=== PATIENT | female | born 1980 | race Caucasian/White ===

== ENCOUNTER 2017-10-12 12:51 | Emergency (ER) | payer OTHER ==
[2017-10-12 13:09] VITALS: BP 147/88; PULSE 70; TEMP 97; BMI 27.3
--- NOTE | 2017-10-12 14:37 | PDOC ---
History of Present Illness - General Chief Complaint: Injury Stated Complaint: FALL/ BACK PAIN Time Seen by Provider: 10/12/17 14:13 History Source: Patient Exam Limitations: No Limitations - History of Present Illness Initial Comments: 10/12/17 14:42 Patient is a 37-year-old female with no past medical history who presents emergency department today complaining of low back pain. Patient states she was knocked over by the family dog and landed flat on her back. States that she hit her head, however no LOC, dizziness or lightheadedness. She is taking Motrin for the pain with little relief. Denies fevers, chills, nausea, vomiting, diarrhea, constipation, weakness, numbness and tingling, urinary or bowel incontinence, saddle anesthesia. Past History - Travel Traveled outside of the country in the last 30 days: No Close contact w/someone who was outside of country & ill: No - Past Medical History Allergies/Adverse Reactions: Allergies Allergy/AdvReac Type Severity Reaction Status Date / Time No Known Allergies Allergy Verified 10/12/17 13:09 Home Medications: Ambulatory Orders Docusate Sodium [Colace -] 100 mg PO BID #14 capsule 10/12/17 Ibuprofen 800 mg PO TID #30 tablet 10/12/17 COPD: No - Suicide/Smoking/Psychosocial Hx Smoking History: Never smoked Review of Systems - Review of Systems Able to Perform ROS?: Yes Comments:: 10/12/17 14:44 CONSTITUTIONAL: Absent: fever, chills, diaphoresis, generalized weakness, malaise, loss of appetite GASTROINTESTINAL: Absent: abdominal pain, abdominal distension, nausea, vomiting, diarrhea, constipation, melena, hematochezia GENITOURINARY: Absent: dysuria, frequency, urgency, hesitancy, hematuria, flank pain, genital pain MUSCULOSKELETAL: Present: low back pain Absent: arthralgia, joint swelling SKIN: Absent: rash, itching, pallor NEUROLOGIC: Absent: headache, focal weakness or paresthesias, dizziness, unsteady gait, seizure, mental status changes, bladder or bowel incontinence Is the patient limited Romanian proficient: No *Physical Exam - Vital Signs Last Vital Signs Temp Pulse Resp BP Pulse Ox 97 F L 70 18 147/88 99 10/12/17 13:08 10/12/17 13:08 10/12/17 13:08 10/12/17 13:08 10/12/17 13:08 - Physical Exam Comments: 10/12/17 14:47 GENERAL: Well developed, well nourished. Awake and alert. No acute distress. NECK: Supple. Full ROM. No JVD. Carotid pulses 2+ and symmetric, without bruits. No thyromegaly. No lymphadenopathy. MUSCULOSKELETAL Point midline tenderness to the level of the coccyx. Normal range of motion at all joints. No bony deformities or tenderness. No CVA tenderness. EXTREMITIES: No cyanosis. No clubbing. No edema. No calf tenderness. SKIN: Warm and dry. Normal capillary refill. No rashes. No jaundice. NEUROLOGICAL: Alert, awake, appropriate. Cranial nerves 2-12 intact. No deficits to light touch and temperature in face, upper extremities and lower extremities. No motor deficits in the in face, upper extremities and lower extremities. Normoreflexic in the upper and lower extremities. Normal speech. Toes are down- going bilaterally. Gait is normal without ataxia. Good rectal tone. Medical Decision Making - Medical Decision Making 10/12/17 14:49 Patient is a 37-year-old female who presents emergency Department with coccyx pain after trip and fall 2 days ago. I suspect a bruised coccyx at this time however will obtain x-ray to rule out fracture. 800 Motrin given. 10/12/17 15:42 X-ray read by radiology shows possible coccyx fracture. Given symptoms and tenderness to palpation at that area, I suspect she does have a fracture. Will dc home with stool softeners and instructions for a donut seat. Results discussed with patient. Pt. understands all d/c instructions and all questions were answered at this time. *DC/Admit/Observation/Transfer Diagnosis at time of Disposition: Fractured coccyx Qualifiers: Encounter type: initial encounter Fracture type: closed Qualified Code(s): S32.2XXA - Fracture of coccyx, initial encounter for closed fracture - Discharge Dispostion Disposition: HOME Condition at time of disposition: Stable Admit: No - Referrals Referrals: Alfonzo Lawrence MD [Primary Care Provider] - Hussain Victoria MD [Staff Physician] - - Patient Instructions Printed Discharge Instructions: DI for Coccyx Fracture Additional Instructions: You have a fracture of your coccyx. Please take 800 mg of Motrin 3 times a day with help with her pain. You may have pain for the next 4-8 weeks. Please by a doughnut air cushion to sit on to relieve stress on the coccyx. Please follow- up with her primary care doctor this week. Return to the emergency department if you have worsening pain, numbness or tingling to the genital area, weakness, or any changes in your symptoms. - Post Discharge Activity
[2017-10-12] MEDS ORDERED: IBUPROFEN 400 MG TABLET (FP) PO ONE ×2 (14:38→14:45)
== END 2017-10-12 15:57 | disposition home or self-care (01) ==
LOC: JERFT 12:51
DX: S32.2XXA Fracture of coccyx, initial encounter for closed fracture (principal); W18.39XA Other fall on same level, initial encounter; Y93.89 Activity, other specified; Y92.018 Other place in single-family (private) house as the place of occurrence of the external cause
CPT/HCPCS: 72100-TC-FY; 72220-TC-FY; 99281-25

== ENCOUNTER 2018-07-19 21:18 | Inpatient (IN) | payer OTHER ==
--- NOTE | 2018-07-19 21:26 | PDOC ---
History of Present Illness - General Stated Complaint: DEHYDRATION Time Seen by Provider: 07/19/18 21:24 History Source: Patient, Spouse ( present for interview.) Exam Limitations: No Limitations - History of Present Illness Initial Comments: 38 y/o female presenting to [facility] ER via BLS ambulance complaining of nausea, vomiting, lightheadedness, and generalized malaise. Symptoms started spontaneously approx. 3 hours ago while she was playing with her children. She suddenly felt extremely nauseous, and vomited a lot in the bathroom. Believes she may have lost consciousness while on the toilet. Denies tongue biting or bowel/bladder incontinence. Temporarily felt relief, then symptoms returned. She called 911 after continued to feel extremely nauseous and lightheaded. EMT reported the pt was pale and diaphoretic on their arrival. PCP: Howard Aranda Hx: - EtOH: Denies - Tobacco: Denies - Street Drugs: Denies Medical Hx: - Depression, managed with citalopram nightly. - Iron deficiency Surgical Hx: - Pt denies. Past History - Past Medical History Allergies/Adverse Reactions: Allergies Allergy/AdvReac Type Severity Reaction Status Date / Time No Known Allergies Allergy Verified 10/12/17 13:09 Home Medications: Ambulatory Orders Docusate Sodium [Colace -] 100 mg PO BID #14 capsule 10/12/17 Ibuprofen 800 mg PO TID #30 tablet 10/12/17 COPD: No - Suicide/Smoking/Psychosocial Hx Smoking History: Never smoked Review of Systems - Review of Systems Able to Perform ROS?: Yes Comments:: In addition to that documented in the HPI above, the additional ROS was obtained : Constitutional: Endorses subjective fevers and chills Eyes: Denies vision changes ENMT: Denies sore throat CV: Denies chest pain Resp: Denies SOB GI: Endorses vomiting. Denies diarrhea : Denies painful urination MSK: Denies recent trauma Skin: Denies new rashes Neuro: Denies new numbness or tingling or weakness Endocrine: Denies polyuria Heme: Denies bleeding disorders *Physical Exam - Physical Exam Comments: Constitutional: Female in no acute distress but obvious discomfort. Found semi- fowlers in hospital bed. Alert and oriented x4. Answered all questions appropriately and completely. Speech was non-labored, non-pressured. Head: Normocephalic. No obvious external signs of trauma. No periorbital ecchymosis or Battles sign. Eyes: PERRL. EOMI. Sclerae white. Conjunctiva moist and not injected. Ears: External auditory canals and tympanic membranes clear. Hearing grossly intact. No hemotympanum. Nose: No nasal discharge. Throat: Oral cavity and pharynx normal. No inflammation, swelling, exudate, or lesions. Teeth and gingiva in good general condition. Neck: Supple, trachea is midline. Pt able to laterally rotate neck to left and right >45 degrees. No subjective C-spine tenderness or bony deformities. No step off. Cardiovascular: Regular rate and regular rhythm. No murmur, rubs, clicks, or gallops. Peripheral pulses: Radial pulses full. Respiratory: Breathing unlabored. Equal chest rise and fall. Clear to auscultation bilaterally. No stridor, no wheezing, no rhonchi. Gastrointestinal: abdomen is subjectively tender in LUQ without rebound or guarding. Globally, abdomen is soft and non-distended. No pulsatile masses. No overlying skin lesions or obvious signs of trauma. Neuro: Alert and oriented. Moving all four extremities spontaneously. No focal deficits, Cranial nerves intact, intact sensation to all four extremities. Upper and lower extremities: proximal and distal strength 5/5, ferryboat ticket taker strength 5/ 5 - equal and symmetric. Plantar flexion and dorsiflexion 5/5. Skin: Pale and diaphoretic. No bruising, rashes, or other lesions. Psych: Affect: appropriate. Mood: normal. ED Treatment Course - LABORATORY CBC & Chemistry Diagram: 07/19/18 22:10 07/19/18 22:10 - RADIOLOGY Radiograph Interpretation: Head CT without IV Contrast: Carlos Alberto Foley MD wrote on Jul 19, 2018 at 11:31 PM: Referring Physician: BISHOP ANDERSON Patient Name: VERONICA LI THIS IS A PRELIMINARY REPORT FROM [facility] DATE OF SERVICE: 2018-07-19 23:13:01 IMAGES: 139 Exam: CT head without IV contrast. Clinical indication:Syncope. Comparison:None available. Technique: Axial unenhanced CT images from the skull base through the brain were obtained followed by coronal and sagital reformats. Findings: The visualized bony structures are unremarkable. The visualized paranasal sinuses and mastoid air cells are clear. There is no evidence of intra-or extra-axial hemorrhage. The ventricles and basilar cisterns are unremarkable. There is no evidence of intracranial mass, acute infarct, or midline shift. Impression: Negative unenhanced CT of the brain. One or more of the following dose reduction techniques were used: automated exposure control, adjustment of the mA and/or kV according to patient size, use of iterative reconstructive technique. THIS DOCUMENT HAS BEEN ELECTRONICALLY SIGNED Carlos Alberto Foley MD 07/19/2018 22:30 EST Medical Decision Making - Medical Decision Making *Reviewed vital signs, nursing notes, and prior visit documentation (if available). 38 y/o female complaining of nausea/vomiting and generalized weakness after possible syncopal episode. No history of similar. Afebrile. Vitals unremarkable for hypotension or tachycardia on arrival. Unrevealing physical exam. Will obtain head CT for syncope. Ordered CBC, CMP, Troponin, EKG, UA, Urine Culture, and serum . Zofran and IVFB. CBC revealed leukocytosis and anemia. Suspect reactionary leukocytosis given short duration of symptoms. Anemia is likely iron deficiency given history. No previous lab results for comparison. CMP revealed hypokalemia and hypocalcemia. Ordered PO and IV replacement as pt is likely symptomatic. Mild hypocalcemia. Corrected to 7.4. Will order PO calcium. Troponin mildly elevated. Suspect demand ischemia given normal EKG and no chest pain. Will repeat with cardiac profile. Serum negative. UA unremarkable for pyuria, nitrites, or leukocyte esterase. Low suspicion for UTI/ urosepsis. 23:57 Microblog sent to [facility] for admission for hypokalemia. 07/20/18 00:[address] Dumont. Agrees to admit pt to tele obs. *DC/Admit/Observation/Transfer Diagnosis at time of Disposition: Hypokalemia Nausea & vomiting Qualifiers: Vomiting type: unspecified Vomiting Intractability: non-intractable Qualified Code(s): R11.2 - Nausea with vomiting, unspecified - Discharge Dispostion Condition at time of disposition: Stable Decision to Admit order: Yes - Referrals Referrals: Alfonzo Lawrence MD [Primary Care Provider] - - Patient Instructions - Post Discharge Activity
[2018-07-19 21:39] VITALS: BMI 25.7
[2018-07-19] MEDS ORDERED: ONDANSETRON 4 MG/2 ML VIAL IVPUSH ONE (21:52)
[2018-07-19] MEDS ORDERED: SODIUM CHLORIDE 0.9% 500 ML INFUS.BAG IV ONE (21:52)
[2018-07-19] MEDS ORDERED: ONDANSETRON 4 MG/2 ML VIAL ONE (22:19)
[2018-07-19 22:25] LABS: URINE APPEARANCE CLOUDY; URINE BILIRUBIN NEGATIVE (<2.0 mg/dL); URINE COLOR LTYELLOW; URINE GLUCOSE (UA) NEGATIVE (NEGATIVE); URINE KETONE NEGATIVE (NEGATIVE); URINE LEUK ESTERASE NEGATIVE (NEGATIVE); URINE NITRITE NEGATIVE (NEGATIVE); URINE PROTEIN NEGATIVE (NEGATIVE); URINE UROBILINOGEN NEGATIVE mg/dL (0.2-1.0)
[2018-07-19 22:39] LABS: BASO % 0.2 % (0-2.0); EOS % 0.3 % (0-4.5); HEMATOCRIT 27.2 % (32.4-45.2); HEMOGLOBIN 8.9 GM/dL (10.7-15.3); LYMPH % 9.4 % (8-40); MCH 29.5 pg (25.7-33.7); MCHC 32.9 g/dl (32.0-36.0); MEAN CELL VOLUME 89.6 fl (80-96); MEAN PLT VOLUME 8.8 fl (7.5-11.1); MONO % 4.8 % (3.8-10.2); NEUT % 85.3 % (42.8-82.8); PLATELET COUNT 243 K/MM3 (134-434); RBC 3.03 M/mm3 (3.60-5.2); WHITE BLOOD COUNT 14.1 K/mm3 (4.0-10.0)
[2018-07-19 22:55] LABS: ALBUMIN 2.6 g/dl (3.4-5.0); ALK PHOS 36 U/L (45-117); ANION GAP 9 MMOL/L (8-16); BILIRUBIN,TOTAL 0.2 mg/dL (0.2-1); BLOOD UREA NITROGEN 24 mg/dL (7-18); CHLORIDE 118 mmol/L (98-107); CO2 18 mmol/L (21-32); CREATININE 0.3 mg/dL (0.55-1.3); GLUCOSE,RANDOM 102 mg/dL (74-106); SGOT/AST 13 U/L (15-37); SGPT/ALT 13 U/L (13-61); SODIUM 146 mmol/L (136-145); TOT PROT 4.7 g/dl (6.4-8.2)
[2018-07-19 22:56] LABS: CALCIUM 6.3 mg/dL (8.5-10.1); POTASSIUM 2.7 mmol/L (3.5-5.1)
[2018-07-19] MEDS ORDERED: POTASSIUM CHLORIDE TABS 20 MEQ TABLET.ER (FP) PO ONE ×2 (23:06→23:10)
[2018-07-19] MEDS ORDERED: MAGNESIUM SULF 50% (8.12 MEQ/2 ML-1 GM VIAL) IVPB ONE (23:06)
--- NOTE | 2018-07-19 23:06 | PDOC ---
Attending Attestation - HPI HPI: 07/19/18 23:17 The patient is a 38-year-old female with no significant past medical history presents to the emergency department via ambulance with nausea and vomiting. The patient presents with 3 hours of nausea and with an episode of NBNB vomiting. The patient reports she went to the bathroom to vomit when she became lightheaded, and the patient states she is unsure if she lost consciousness or not. Denies fever, chills chest pain, dysuria, hematuria, frequency or urgency to urinate. Allergies: NKA PCP: Alfonzo Fagan MD <Patricia Salas - Last Filed: 07/19/18 23:17> - Resident Resident Name: Tim Lamas - ED Attending Attestation I have performed the following: I have examined & evaluated the patient, The case was reviewed & discussed with the resident, I agree w/resident's findings & plan - HPI HPI: 07/20/18 06:51 Pt tells us that her stools are dark, but that they always are due to iron supplements. She states that her vomitus yesterday was dark, but that she was eating oreos. Then she admits that she only ate one cookie. - Physicial Exam PE: 07/20/18 01:01 Agree with resident exam 07/20/18 07:00 Pt is pale. - Medical Decision Making 07/20/18 01:46 Patient Name: VERONICA LI THIS IS A PRELIMINARY REPORT FROM [facility] DATE OF SERVICE: 2018-07-19 23:13:01 IMAGES: 139 Exam: CT head without IV contrast. Clinical indication:Syncope. Comparison:None available. Technique: Axial unenhanced CT images from the skull base through the brain were obtained followed by coronal and sagital reformats. Findings: The visualized bony structures are unremarkable. The visualized paranasal sinuses and mastoid air cells are clear. There is no evidence of intra-or extra-axial hemorrhage. The ventricles and basilar cisterns are unremarkable. There is no evidence of intracranial mass, acute infarct, or midline shift. Impression: Negative unenhanced CT of the brain. THIS DOCUMENT HAS BEEN ELECTRONICALLY SIGNED 07/20/18 01:48 US normal. Pt was given K+ and Mg+ and she is pending repeat chem 07/20/18 05:03 Repeat chem is vastly improved. 07/20/18 06:44 Repeat CBC shows drop of 2.5 points of Hb. Pt received only 1L NSS. Pt reiterates that she wasvomiting black due to the Oreo that she ate. She also mentions that her stool is black due 07/20/18 06:47 Dr. Don and Hospitalist are both aware. Pt will get her unit of blood PRBC. Heading to the tele unit. 07/20/18 07:00 1U of blood hanging. I signed consent with the patient for the transfusion. <Erica Qiu - Last Filed: 07/20/18 07:02>
[2018-07-19] MEDS ORDERED: MAGNESIUM 1GM/D5W - 2 GM/200 ML IVPB IVPB ONE (23:11)
[2018-07-19] MEDS ORDERED: MAGNESIUM SULF 50% (8.12 MEQ/2 ML-1 GM VIAL) ONE (23:13)
[2018-07-19] MEDS ORDERED: KCL 10 MEQ IVPB 10 MEQ/100 ML INFUS.BAG IVPB ONE (23:56)
[2018-07-20] MEDS: KCL 10 MEQ IVPB 10 MEQ/100 ML INFUS.BAG IVPB SCH ×2 (00:07→01:44)
--- NOTE | 2018-07-20 00:35 | HP ---
CHIEF COMPLAINT: nausea, vomiting PCP: Howard HISTORY OF PRESENT ILLNESS: 38 y/o female presenting complaining of nausea, vomiting, lightheadedness, and generalized malaise. Symptoms started 6pm on 07/19/18. Patient reported eating spaghetti shortly before her symptoms started. She also had LOC when she was in bathroom and attempted to stand up from toilet. Denied CP or SOB. ER course was notable for: (1) head ct (2)iv fluids (3) potassium Recent Travel: none PAST MEDICAL HISTORY: depression, suni PAST SURGICAL HISTORY: c section x2 Social History: Smoking: no Alcohol: no Drugs: no Family History: none Allergies No Known Allergies Allergy (Verified 10/12/17 13:09) HOME MEDICATIONS: Home Medications Medication Instructions Recorded Docusate Sodium [Colace -] 100 mg PO BID #14 capsule 10/12/17 Ibuprofen 800 mg PO TID #30 tablet 10/12/17 REVIEW OF SYSTEMS CONSTITUTIONAL: Absent: fever, chills, diaphoresis, loss of appetite, weight change Present: generalized weakness, malaise HEENT: Absent: rhinorrhea, nasal congestion, throat pain, throat swelling, difficulty swallowing, mouth swelling, ear pain, eye pain, visual changes CARDIOVASCULAR: Absent: chest pain, syncope, palpitations, irregular heart rate, lightheadedness , peripheral edema RESPIRATORY: Absent: cough, shortness of breath, dyspnea with exertion, orthopnea, wheezing, stridor, hemoptysis GASTROINTESTINAL: Absent: abdominal pain, abdominal distension, diarrhea, constipation, melena, hematochezia Present: nausea, vomiting, GENITOURINARY: Absent: dysuria, frequency, urgency, hesitancy, hematuria, flank pain, genital pain MUSCULOSKELETAL: Absent: myalgia, arthralgia, joint swelling, back pain, neck pain SKIN: Absent: rash, itching, pallor HEMATOLOGIC/IMMUNOLOGIC: Absent: easy bleeding, easy bruising, lymphadenopathy, frequent infections ENDOCRINE: Absent: unexplained weight gain, unexplained weight loss, heat intolerance, cold intolerance NEUROLOGIC: Absent: headache, focal weakness or paresthesias, dizziness, unsteady gait, seizure, mental status changes, bladder or bowel incontinence PSYCHIATRIC: Absent: anxiety, depression, suicidal or homicidal ideation, hallucinations. PHYSICAL EXAMINATION Vital Signs - 24 hr 07/19/18 21:36 Temperature 97.8 F Pulse Rate 86 Respiratory 20 Rate Blood Pressure 130/80 O2 Sat by Pulse 100 Oximetry (%) GENERAL: Awake, alert, and fully oriented, in no acute distress. HEAD: Normal with no signs of trauma. EYES: Pupils equal, round and reactive to light, extraocular movements intact, sclera anicteric, conjunctiva clear. No lid lag. EARS, NOSE, THROAT: Ears normal, nares patent, oropharynx clear without exudates. Moist mucous membranes. NECK: Normal range of motion, supple without lymphadenopathy, JVD, or masses. LUNGS: Breath sounds equal, clear to auscultation bilaterally. No wheezes, and no crackles. No accessory muscle use. HEART: Regular rate and rhythm, normal S1 and S2 without murmur, rub or gallop. ABDOMEN: Soft, nontender, not distended, normoactive bowel sounds, no guarding, no rebound, no masses. No hepatomegaly or splenomegaly. MUSCULOSKELETAL: Normal range of motion at all joints. No bony deformities or tenderness. No CVA tenderness. UPPER EXTREMITIES: 2+ pulses, warm, well-perfused. No cyanosis. No clubbing. No peripheral edema. LOWER EXTREMITIES: 2+ pulses, warm, well-perfused. No calf tenderness. No peripheral edema. NEUROLOGICAL: Normal speech. Normal gait. PSYCHIATRIC: Cooperative. Good eye contact. Appropriate mood and affect. SKIN: Warm, dry, normal turgor, no rashes or lesions noted, normal capillary refill. Laboratory Results - last 24 hr 07/19/18 07/19/18 07/19/18 22:10 22:10 22:10 WBC 14.1 H RBC 3.03 L Hgb 8.9 L Hct 27.2 L MCV 89.6 MCH 29.5 MCHC 32.9 RDW 13.0 Plt Count 243 MPV 8.8 Absolute Neuts (auto) 12.1 H Neutrophils % 85.3 H Lymphocytes % 9.4 Monocytes % 4.8 Eosinophils % 0.3 Basophils % 0.2 Nucleated RBC % 0 Sodium 146 H Potassium 2.7 L* Chloride 118 H Carbon Dioxide 18 L Anion Gap 9 BUN 24 H Creatinine 0.3 L Creat Clearance w eGFR > 60 Random Glucose 102 Calcium 6.3 L* Total Bilirubin 0.2 AST 13 L ALT 13 Alkaline Phosphatase 36 L Troponin I Total Protein 4.7 L Albumin 2.6 L Serum , Qual Urine Color Urine Appearance Urine pH Ur Specific [place] Urine Protein Urine Glucose (UA) Urine Ketones Urine Blood Urine Nitrite Urine Bilirubin Urine Urobilinogen Ur Leukocyte Esterase Blood Type O POSITIVE Antibody Screen Negative 07/19/18 07/19/18 07/19/18 22:10 22:10 22:10 WBC RBC Hgb Hct MCV MCH MCHC RDW Plt Count MPV Absolute Neuts (auto) Neutrophils % Lymphocytes % Monocytes % Eosinophils % Basophils % Nucleated RBC % Sodium Potassium Chloride Carbon Dioxide Anion Gap BUN Creatinine Creat Clearance w eGFR Random Glucose Calcium Total Bilirubin AST ALT Alkaline Phosphatase Troponin I 0.06 H Total Protein Albumin Serum , Qual Negative Urine Color Ltyellow Urine Appearance Cloudy Urine pH 7.0 Ur Specific [place] 1.018 Urine Protein Negative Urine Glucose (UA) Negative Urine Ketones Negative Urine Blood Negative Urine Nitrite Negative Urine Bilirubin Negative Urine Urobilinogen Negative Ur Leukocyte Esterase Negative Blood Type Antibody Screen ekg reviewed - nsr, ASSESSMENT/PLAN: #Nausea and vomiting with resultant electrolyte disturbances- hypokalemia and hypocalcemia. Uncertain cause of nausea and vomiting. May be food poisoning. Syncope episode likely vasovagal vs orthostatic. -obs tele -replace potassium -replace calcium -IV fluid hydration with normal saline -f/u head CT report -check orthostatics -IV zofran prn if nausea/vomiting -BRAT diet for now -heparin sc for dvt ppx Visit type - Emergency Visit Emergency Visit: Yes ED Registration Date: 07/20/18 Care time: The patient presented to the Emergency Department on the above date and was hospitalized for further evaluation of their emergent condition. - New Patient This patient is new to me today: Yes Date on this admission: 07/20/18 - Critical Care Critical Care patient: No
[2018-07-20] MEDS ORDERED: CALCIUM GLUBIONATE 1.8 GM/5 ML SOLUTION PO ONE (00:37)
[2018-07-20] MEDS ORDERED: KCL 10 MEQ IVPB 10 MEQ/100 ML INFUS.BAG IVPB ONE (01:40)
[2018-07-20 01:52] LABS: ANION GAP 6 MMOL/L (8-16); BLOOD UREA NITROGEN 19 mg/dL (7-18); CHLORIDE 118 mmol/L (98-107); CO2 20 mmol/L (21-32); CREATININE 0.3 mg/dL (0.55-1.3); GLUCOSE,RANDOM 109 mg/dL (74-106); POTASSIUM 4.5 mmol/L (3.5-5.1); SODIUM 144 mmol/L (136-145)
[2018-07-20] MEDS: SODIUM CHLORIDE 1,000 ML IV SCH (03:22)
[2018-07-20] MEDS ORDERED: ACETAMINOPHEN 1000 MG/100 ML VIAL (NON FORMULARY) IVPB ONE (03:24)
[2018-07-20] MEDS ORDERED: ACETAMINOPHEN INJECTION 100 ML IVPB ONE (03:25)
[2018-07-20 06:20] LABS: BASO % 0.5 % (0-2.0); EOS % 0.5 % (0-4.5); HEMATOCRIT 19.7 % (32.4-45.2); LYMPH % 19.3 % (8-40); MCH 29.3 pg (25.7-33.7); MCHC 32.5 g/dl (32.0-36.0); MEAN CELL VOLUME 90.3 fl (80-96); MEAN PLT VOLUME 8.6 fl (7.5-11.1); MONO % 7.1 % (3.8-10.2); NEUT % 72.6 % (42.8-82.8); PLATELET COUNT 184 K/MM3 (134-434); RBC 2.18 M/mm3 (3.60-5.2); WHITE BLOOD COUNT 9.2 K/mm3 (4.0-10.0)
[2018-07-20 06:27] LABS: HEMOGLOBIN 6.4 GM/dL (10.7-15.3)
[2018-07-20] MEDS ORDERED: PANTOPRAZOLE SODIUM 40 MG VIAL ONE (08:42)
[2018-07-20] MEDS: PANTOPRAZOLE SODIUM 40 MG VIAL IVPUSH SCH ×2 (08:48→10:37)
--- NOTE | 2018-07-20 08:48 | PN ---
Progress Note, Physician - Current Medication List Current Medications: Active Medications Citalopram Hydrobromide (Celexa -) 10 mg PO DAILY [facility] Docusate Sodium (Colace -) 100 mg PO BID [facility] Heparin Sodium (Porcine) (Heparin -) 5,000 unit SQ BID [facility] Sodium Chloride (Normal Saline -) 1,000 mls @ 75 mls/hr IV ASDIR [facility] Last Admin: 07/20/18 03:22 Dose: 75 mls/hr Ondansetron HCl (Zofran Injection) 4 mg IVPB Q6H PRN PRN Reason: NAUSEA Pantoprazole Sodium (Protonix Iv) 40 mg IVPUSH BID [facility] Last Admin: 07/20/18 08:48 Dose: 40 mg - Objective Vital Signs: Vital Signs Temperature 99.0 F 07/20/18 07:50 Pulse Rate 79 07/20/18 07:50 Respiratory Rate 16 07/20/18 07:50 Blood Pressure 99/71 07/20/18 07:50 O2 Sat by Pulse Oximetry (%) 99 07/20/18 07:50 Labs: CBC, BMP 07/20/18 06:05 07/20/18 06:05
--- NOTE | 2018-07-20 09:52 | CON.GI ---
Consult Consult Specialty:: GI Referred by:: Dr Tiffanie Castro Reason for Consultation:: GI bleed - History of Present Illness Chief Complaint: coffee grounds emesis last evening History of Present Illness: 38 y.o. woman, history of "gastritis" 10 years ago, on oral iron for 5-6 months for anemia, who had brownish emesis x 3 15 hours ago. Denies diarrhea or any subsequent vomiting. [place] faint and collapsed briefly, by her report. No h/o ulcer, GI bleed, unintentional weight loss, heavy menses, change in bowel habits. In ER was found to have normal vital signs, alert, oriented. Labs showed an anemia without evidence of chronic iron deficiency (not microcytic); Hgb dropped by > 2 gm after IV hydration and during observation in ER. Stool was reportedly black on digital rectal exam and is positive for occult blood, but Dr Qiu did not think it was melena (I spoke with Dr Qiu this a.m.). Of note, the patient has been on an SSRI for depression. She denies use of NSAIDs. CBC, BMP 07/20/18 06:05 CMP Sodium 144 mmol/L (136-145) 07/20/18 01:15 Potassium 4.5 mmol/L (3.5-5.1) 07/20/18 01:15 Chloride 118 mmol/L (98-107) H 07/20/18 01:15 Carbon Dioxide 20 mmol/L (21-32) L 07/20/18 01:15 Anion Gap 6 MMOL/L (8-16) L 07/20/18 01:15 BUN 19 mg/dL (7-18) H 07/20/18 01:15 Creatinine 0.3 mg/dL (0.55-1.3) L 07/20/18 01:15 Creat Clearance w eGFR > 60 (>60) 07/20/18 01:15 Random Glucose 109 mg/dL (74-106) H 07/20/18 01:15 Calcium 7.0 mg/dL (8.5-10.1) L 07/20/18 01:15 Total Bilirubin 0.2 mg/dL (0.2-1) 07/19/18 22:10 AST 13 U/L (15-37) L 07/19/18 22:10 ALT 13 U/L (13-61) 07/19/18 22:10 Alkaline Phosphatase 36 U/L (45-117) L 07/19/18 22:10 Creatine Kinase 65 IU/L (26-192) 07/20/18 01:15 Troponin I 0.09 ng/ml (0.00-0.05) H 07/20/18 01:15 Total Protein 4.7 g/dl (6.4-8.2) L 07/19/18 22:10 Albumin 2.6 g/dl (3.4-5.0) L 07/19/18 22:10 Serum , Qual Negative 07/19/18 22:10 - History Source History Provided By: Patient, Medical Record Limitations to Obtaining History: No Limitations - Past Medical History Gastrointestinal: Yes: Gastritis Heme/Onc: Yes: Anemia Psych: Yes: Depression - Past Surgical History Past Surgical History: Yes: None - Smoking History Smoking history: Never smoked Home Medications - Allergies Allergies/Adverse Reactions: Allergies Allergy/AdvReac Type Severity Reaction Status Date / Time No Known Allergies Allergy Verified 07/20/18 03:08 - Home Medications Home Medications: Ambulatory Orders Citalopram Hydrobromide [Celexa -] 10 mg PO DAILY 07/20/18 Review of Systems - Review of Systems Constitutional: reports: Weakness Psychiatric: reports: Depression Physical Exam-GI Vital Signs: Vital Signs Temperature 99.0 F 07/20/18 07:50 Pulse Rate 79 07/20/18 07:50 Respiratory Rate 16 07/20/18 07:50 Blood Pressure 99/71 07/20/18 07:50 O2 Sat by Pulse Oximetry (%) 99 07/20/18 07:50 Constitutional: Yes: Well Nourished Eyes: Yes: WNL HENT: Yes: WNL Neck: Yes: Supple, Trachea Midline Cardiovascular: Yes: WNL Respiratory: Yes: WNL Gastrointestinal Inspection: Yes: WNL ...Auscultate: Yes: Normoactive Bowel Sounds ...Rectal Exam: Yes: Other (Performed by Dr Qiu. See HPI.) Extremities: Yes: WNL Neurological: Yes: Alert, Oriented ...Motor Strength: WNL Psychiatric: Yes: WNL Labs: CBC, BMP 07/20/18 06:05 07/20/18 06:05 Problem List - Problems (1) GI bleeding Code(s): K92.2 - GASTROINTESTINAL HEMORRHAGE, UNSPECIFIED Qualifiers: GI bleed type/associated pathology: gastrointestinal hemorrhage with hematemesis Qualified Code(s): K92.0 - Hematemesis Assessment/Plan GI bleed. Pt looks remarkably stable; I suspect some of her bleeding may have occurred prior to last evening. I discussed risks/benefits of endoscopy with sedation with the patient and she has given verbal consent. Will arrange for tomorrow unless she has unexpected deterioration today requiring an emergency procedure. Note that SSRIs have been implicated in GI bleeding. To begin pantoprazole drip.
[2018-07-20 10:16] LABS: ANION GAP 7 MMOL/L (8-16); BLOOD UREA NITROGEN 13 mg/dL (7-18); CHLORIDE 117 mmol/L (98-107); CO2 20 mmol/L (21-32); CREATININE 0.3 mg/dL (0.55-1.3); GLUCOSE,RANDOM 84 mg/dL (74-106); POTASSIUM 4.1 mmol/L (3.5-5.1); SODIUM 144 mmol/L (136-145)
[2018-07-20 10:18] LABS: CALCIUM 6.8 mg/dL (8.5-10.1)
[2018-07-20] MEDS: DOCUSATE SODIUM 100 MG CAPSULE (FP) PO SCH ×2 (10:34→21:33)
[2018-07-20] MEDS: CITALOPRAM HYDROBROMIDE 10 MG TABLET (FP) PO SCH (10:35)
[2018-07-20] MEDS: HEPARIN NA (PORCINE) 5,000 UNITS/ML 1ML VIAL SQ SCH ×2 (10:36→21:33)
--- NOTE | 2018-07-20 12:36 | EKG ---
Test Reason : Blood Pressure : / mmHG Vent. Rate : 068 BPM Atrial Rate : 068 BPM P-R Int : 112 ms QRS Dur : 094 ms QT Int : 428 ms P-R-T Axes : -08 047 012 degrees QTc Int : 455 ms NORMAL SINUS RHYTHM INCOMPLETE RIGHT BUNDLE BRANCH BLOCK NONSPECIFIC T WAVE ABNORMALITY ABNORMAL ECG NO PREVIOUS ECGS AVAILABLE Confirmed by Og Briscoe ([id number]) on 07/20/2018 12:35:54 PM Referred By: Confirmed By:Og Briscoe
[2018-07-20 14:26] LABS: HEMOGLOBIN 8.1 GM/dL (10.7-15.3); MCH 29.2 pg (25.7-33.7); MCHC 32.2 g/dl (32.0-36.0); MEAN CELL VOLUME 90.6 fl (80-96); MEAN PLT VOLUME 8.4 fl (7.5-11.1); PLATELET COUNT 188 K/MM3 (134-434); RBC 2.76 M/mm3 (3.60-5.2); RDW 13.3 % (11.6-15.6); WHITE BLOOD COUNT 9.6 K/mm3 (4.0-10.0)
[2018-07-20] MEDS ORDERED: ACETAMINOPHEN 325 MG TABLET (FP) PO ONE (19:15)
[2018-07-20] MEDS: PANTOPRAZOLE SODIUM 80 MG in SODIUM CHLORIDE 100 ML IVPB SCH (20:38)
[2018-07-20] MEDS: ONDANSETRON 4 MG/2 ML VIAL IVPB PRN (20:40)
[2018-07-20 22:13] LABS: HEMATOCRIT 23.5 % (32.4-45.2); HEMOGLOBIN 7.7 GM/dL (10.7-15.3); MCH 29.6 pg (25.7-33.7); MCHC 32.8 g/dl (32.0-36.0); MEAN CELL VOLUME 90.1 fl (80-96); MEAN PLT VOLUME 8.8 fl (7.5-11.1); PLATELET COUNT 190 K/MM3 (134-434); RBC 2.61 M/mm3 (3.60-5.2); RDW 13.5 % (11.6-15.6); WHITE BLOOD COUNT 7.9 K/mm3 (4.0-10.0)
[2018-07-21] MEDS: SODIUM CHLORIDE 1,000 ML IV SCH (06:43)
[2018-07-21] MEDS: PANTOPRAZOLE SODIUM 80 MG in SODIUM CHLORIDE 100 ML IVPB SCH (06:43)
[2018-07-21 06:55] LABS: BASO % 0.6 % (0-2.0); HEMATOCRIT 23.8 % (32.4-45.2); HEMOGLOBIN 7.7 GM/dL (10.7-15.3); MCH 29.1 pg (25.7-33.7); MCHC 32.5 g/dl (32.0-36.0); MEAN CELL VOLUME 89.7 fl (80-96); MEAN PLT VOLUME 8.5 fl (7.5-11.1); MONO % 6.7 % (3.8-10.2); NEUT % 55.7 % (42.8-82.8); PLATELET COUNT 188 K/MM3 (134-434); RBC 2.66 M/mm3 (3.60-5.2); RDW 13.3 % (11.6-15.6); WHITE BLOOD COUNT 5.8 K/mm3 (4.0-10.0)
[2018-07-21 07:27] LABS: ANION GAP 7 MMOL/L (8-16); BLOOD UREA NITROGEN 5 mg/dL (7-18); CALCIUM 7.9 mg/dL (8.5-10.1); CHLORIDE 110 mmol/L (98-107); CO2 23 mmol/L (21-32); CREATININE 0.4 mg/dL (0.55-1.3); GLUCOSE,RANDOM 82 mg/dL (74-106); POTASSIUM 3.8 mmol/L (3.5-5.1); SODIUM 140 mmol/L (136-145)
[2018-07-21] MEDS: CITALOPRAM HYDROBROMIDE 10 MG TABLET (FP) PO SCH (09:45)
[2018-07-21] MEDS: DOCUSATE SODIUM 100 MG CAPSULE (FP) PO SCH ×2 (09:45→22:02)
--- NOTE | 2018-07-21 10:10 | CON.CARD ---
Consult Consult Specialty:: Cardiology Referred by:: Tiffanie Castro MD Reason for Consultation:: Pre-procedure CV-evaluation - History of Present Illness Chief Complaint: Coffee-ground emesis History of Present Illness: 38 y.o. woman, history of "gastritis" 10 years ago, on oral iron for 5-6 months for anemia, presented with brownish emesis x 3 15 hours ago without diarrhea or any subsequent vomiting. [place] faint and collapsed briefly, by her report. No h/ o ulcer, GI bleed, unintentional weight loss, heavy menses, change in bowel habits. Hemodynamically stable. Labs showed an anemia without evidence of chronic iron deficiency (not microcytic); Hgb dropped by > 2 gm after IV hydration, demand ischemia noted with trops since peaked. Stool was reportedly black on digital rectal exam and is positive for occult blood. Of note, the patient has been on an SSRI for depression. She denies use of NSAIDs. - History Source History Provided By: Patient Limitations to Obtaining History: No Limitations - Past Medical History Gastrointestinal: Yes: Gastritis Psych: Yes: Depression - Past Surgical History Past Surgical History: Yes: None - Smoking History Smoking history: Never smoked Home Medications - Allergies Allergies/Adverse Reactions: Allergies Allergy/AdvReac Type Severity Reaction Status Date / Time No Known Allergies Allergy Verified 07/20/18 03:08 - Home Medications Home Medications: Ambulatory Orders Citalopram Hydrobromide [Celexa -] 10 mg PO DAILY 07/20/18 Review of Systems - Review of Systems Gastrointestinal: reports: Melena, Vomiting Vital Signs: Vital Signs Temperature 98.8 F 07/21/18 05:00 Pulse Rate 88 07/21/18 05:00 Respiratory Rate 19 07/21/18 05:00 Blood Pressure 120/83 07/21/18 05:00 O2 Sat by Pulse Oximetry (%) 98 07/21/18 04:00 Constitutional: Yes: No Distress, Calm Neck: Yes: Supple Respiratory: Yes: Regular, CTA Bilaterally Gastrointestinal: Yes: Soft, Hypoactive Bowel Sounds, Melena, Vomiting Cardiovascular: Yes: Regular Rate and Rhythm JVD: No Carotid Bruit: No Heart Sounds: Yes: S1, S2 Edema: No - Other Data Labs, Other Data: CBC, BMP 07/21/18 05:30 07/21/18 05:30 Troponin, BNP 07/20/18 06:05 Troponin I 0.05 Troponin, BNP 07/20/18 06:05 Troponin I 0.05 NSR Imaging - Results Chest X-ray: Report Reviewed (NAD) EKG: Report Reviewed (NSR @ 68 IRBBB nonspec T wave changes) Problem List - Problems (1) Syncope due to orthostatic hypotension Code(s): I95.1 - ORTHOSTATIC HYPOTENSION (2) Pre-procedural cardiovascular examination Code(s): Z01.810 - ENCOUNTER FOR PREPROCEDURAL CARDIOVASCULAR EXAMINATION (3) GI bleeding Code(s): K92.2 - GASTROINTESTINAL HEMORRHAGE, UNSPECIFIED Qualifiers: GI bleed type/associated pathology: gastrointestinal hemorrhage with hematemesis Qualified Code(s): K92.0 - Hematemesis (4) Nausea & vomiting Code(s): R11.2 - NAUSEA WITH VOMITING, UNSPECIFIED Qualifiers: Vomiting type: unspecified Vomiting Intractability: non-intractable Qualified Code(s): R11.2 - Nausea with vomiting, unspecified Assessment/Plan 1. Acute blood loss anemia referable to UGI bleed 2. Syncope referable to hypovolemia/orthostatic hypotension 3. Demand ischemia P:1. Transfuse as needed to maintain Hgb>8.0, trops are downtrending 2. Protonix gtt, await EGD to elucidate etiology of UGI bleed, antiemetics 3. May proceed from CV-standpoint without further testing 4. Thank you for consultative opportunity
--- NOTE | 2018-07-21 11:28 | PN ---
Progress Note, Physician History of Present Illness: pt seen/ examined chart reviewed comfortable had headache before - better. for egd today denies cp/sob - Current Medication List Current Medications: Active Medications Citalopram Hydrobromide (Celexa -) 10 mg PO DAILY [facility] Last Admin: 07/21/18 09:45 Dose: 10 mg Docusate Sodium (Colace -) 100 mg PO BID [facility] Last Admin: 07/21/18 09:45 Dose: 100 mg Sodium Chloride (Normal Saline -) 1,000 mls @ 75 mls/hr IV ASDIR [facility] Last Admin: 07/21/18 06:43 Dose: 75 mls/hr Pantoprazole Sodium 80 mg/ (Sodium Chloride) 100 mls @ 10 mls/hr IVPB Q10H [facility] Last Admin: 07/21/18 06:43 Dose: 10 mls/hr Ondansetron HCl (Zofran Injection) 4 mg IVPB Q6H PRN PRN Reason: NAUSEA Last Admin: 07/20/18 20:40 Dose: 4 mg - Objective Vital Signs: Vital Signs Temperature 97.8 F 07/21/18 09:00 Pulse Rate 73 07/21/18 09:00 Respiratory Rate 19 07/21/18 09:00 Blood Pressure 139/80 07/21/18 09:00 O2 Sat by Pulse Oximetry (%) 98 07/21/18 04:00 Constitutional: Yes: No Distress, Calm Eyes: Yes: Conjunctiva Clear Neck: Yes: Supple Cardiovascular: Yes: Regular Rate and Rhythm Respiratory: Yes: CTA Bilaterally Gastrointestinal: Yes: Soft Edema: No Neurological: Yes: Alert Psychiatric: Yes: Alert Labs: CBC, BMP 07/21/18 05:30 07/21/18 05:30 Problem List - Problems (1) GI bleeding Code(s): K92.2 - GASTROINTESTINAL HEMORRHAGE, UNSPECIFIED Qualifiers: GI bleed type/associated pathology: gastrointestinal hemorrhage with hematemesis Qualified Code(s): K92.0 - Hematemesis (2) Nausea & vomiting Code(s): R11.2 - NAUSEA WITH VOMITING, UNSPECIFIED Qualifiers: Vomiting type: unspecified Vomiting Intractability: non-intractable Qualified Code(s): R11.2 - Nausea with vomiting, unspecified Assessment/Plan continue present care for egd today medically stable for same will follow
--- NOTE | 2018-07-21 14:05 | PN ---
Progress Note (short form) - Note Progress Note: EGD complete. report left in procedural section of physical chart and to be scanned into [employer]
[2018-07-21] MEDS: PANTOPRAZOLE 40 MG TABLET (FP) PO SCH (14:43)
[2018-07-21] MEDS ORDERED: ACETAMINOPHEN 325 MG TABLET (FP) PO ONE (21:30)
[2018-07-22 07:37] LABS: BASO % 0.5 % (0-2.0); EOS % 7.5 % (0-4.5); HEMATOCRIT 24.8 % (32.4-45.2); LYMPH % 26.8 % (8-40); MCH 29.3 pg (25.7-33.7); MCHC 32.5 g/dl (32.0-36.0); MEAN CELL VOLUME 90.2 fl (80-96); MEAN PLT VOLUME 8.5 fl (7.5-11.1); MONO % 8.7 % (3.8-10.2); NEUT % 56.5 % (42.8-82.8); PLATELET COUNT 202 K/MM3 (134-434); RBC 2.75 M/mm3 (3.60-5.2); RDW 13.4 % (11.6-15.6); WHITE BLOOD COUNT 5.8 K/mm3 (4.0-10.0)
[2018-07-22 07:49] LABS: ANION GAP 9 MMOL/L (8-16); BLOOD UREA NITROGEN 5 mg/dL (7-18); CHLORIDE 108 mmol/L (98-107); CO2 25 mmol/L (21-32); CREATININE 0.4 mg/dL (0.55-1.3); GLUCOSE,RANDOM 79 mg/dL (74-106); POTASSIUM 3.3 mmol/L (3.5-5.1); SODIUM 142 mmol/L (136-145)
[2018-07-22] MEDS: CITALOPRAM HYDROBROMIDE 10 MG TABLET (FP) PO SCH (09:31)
[2018-07-22] MEDS: DOCUSATE SODIUM 100 MG CAPSULE (FP) PO SCH (09:31)
[2018-07-22] MEDS: PANTOPRAZOLE 40 MG TABLET (FP) PO SCH (09:31)
--- NOTE | 2018-07-22 10:43 | PN ---
Progress Note (short form) - Note Progress Note: Chief Complaint: Events noted, notes reviewed, complaining of nausea, denies any chest pain, EGD report noted Duodenal ulcer History of Present Illness: Seen and examined on telemetry. Events noted, notes reviewed, complaining of nausea, denies any chest pain, EGD report noted Duodenal ulcer - Current Medication List Current Medications Citalopram Hydrobromide (Celexa -) 10 mg PO DAILY [facility] Last Admin: 07/22/18 09:31 Dose: 10 mg Docusate Sodium (Colace -) 100 mg PO BID [facility] Last Admin: 07/22/18 09:31 Dose: 100 mg Sodium Chloride (Normal Saline -) 1,000 mls @ 75 mls/hr IV ASDIR [facility] Last Admin: 07/21/18 06:43 Dose: 75 mls/hr Ondansetron HCl (Zofran Injection) 4 mg IVPB Q6H PRN PRN Reason: NAUSEA Last Admin: 07/20/18 20:40 Dose: 4 mg Pantoprazole Sodium (Protonix -) 40 mg PO DAILY [facility] Last Admin: 07/22/18 09:31 Dose: 40 mg Review of Systems - Review of Systems Constitutional: denies: Chills or Fever Cardiovascular: as noted above Gastrointestinal: reports: Nausea denies: Diarrhea, Constipation or Abdominal Pain Genitourinary: No symptoms reported Neurological: No symptoms reported Vital Signs: Last Vital Signs Temp Pulse Resp BP Pulse Ox 98.8 F 70 20 141/61 99 07/22/18 06:25 07/22/18 06:25 07/22/18 06:25 07/22/18 06:25 07/21/18 20:30 Intake & Output 07/19/18 07/20/18 07/21/18 07/22/18 23:59 23:59 23:59 23:59 Intake Total 1310 2800 825 Balance 1310 2800 825 Weight 155 lb Constitutional: No Distress, Calm Neck: Supple Negative JVD Respiratory: CTA Bilaterally Cardiovascular: S1 S2 Regular Rate and Rhythm Gastrointestinal: Soft Benign Normal Bowel Sounds Ext: No Edema Labs: CBC, BMP 07/22/18 06:28 07/22/18 06:28 Hepatic Panel Total Bilirubin 0.2 mg/dL (0.2-1) 07/19/18 22:10 AST 13 U/L (15-37) L 07/19/18 22:10 ALT 13 U/L (13-61) 07/19/18 22:10 Alkaline Phosphatase 36 U/L (45-117) L 07/19/18 22:10 Albumin 2.6 g/dl (3.4-5.0) L 07/19/18 22:10 Assessment/Plan ASSESSMENT: 1. Acute blood loss anemia referable to upper gastrointestinal bleed/related to duodenal ulcer 2. Syncope referable to hypovolemia/orthostatic hypotension related to above 3. Evidence of demand ischemia with clinical evidence of structural heart disease 4. Hypokalemia PLAN: 1. Transfuse as needed to maintain Hgb > 8.0 2. PPI/Protonix as per the primary team 3. Echocardiography for evaluation LV size and function 4. Hypokalemia correction Al Carson M.D.
[2018-07-22] MEDS: ONDANSETRON 4 MG/2 ML VIAL IVPB PRN (11:01)
[2018-07-22] MEDS ORDERED: POTASSIUM CHLORIDE TABS 20 MEQ TABLET.ER (FP) PO ONE (11:18)
--- NOTE | 2018-07-22 12:02 | DS ---
Physical Examination Vital Signs: Vital Signs Temperature 98.8 F 07/22/18 06:25 Pulse Rate 70 07/22/18 06:25 Respiratory Rate 20 07/22/18 06:25 Blood Pressure 141/61 07/22/18 06:25 O2 Sat by Pulse Oximetry (%) 99 07/21/18 20:30 Constitutional: Yes: No Distress, Calm Cardiovascular: Yes: Regular Rate and Rhythm Respiratory: Yes: CTA Bilaterally Gastrointestinal: Yes: Normal Bowel Sounds, Soft. No: Tenderness Edema: No Labs: CBC, BMP 07/22/18 06:28 07/22/18 06:28 Discharge Summary Reason For Visit: NAUSEA AND VOMITING, HYPOKALEMIA Current Active Problems GI bleeding (Acute) Hypokalemia (Acute) Nausea & vomiting (Acute) Pre-procedural cardiovascular examination (Acute) Hospital Course: Pt admitted for nausea, acute severe anemia Seen by Cardiology and GI Stool guaic positive underwent EGD-- showed non bleeding ulcer in duodenum. Advised Protonix daily x 8 weeks avoid NSAIDS Echo done cardiac kang stable may be dc home and follow up pathology results as outpt GI Condition: Stable - Instructions Referrals: Alfonzo Lawrence MD [Primary Care Provider] - Mark Don MD [Staff Physician] - Disposition: HOME - Home Medications Comprehensive Discharge Medication List: Ambulatory Orders Citalopram Hydrobromide [Celexa -] 10 mg PO DAILY 07/20/18 Pantoprazole Sodium [Protonix -] 40 mg PO DAILY #56 tablet.ec 07/22/18
--- NOTE | 2018-07-22 15:10 | ECHO ---
Name: FLEX LYNNE Exam:Adult Echocardiogram Study Date: 07/22/2018 11:16 AM Age: 38 yrs Reason For Study: EVALUATE lv fn,demand ischemia Height: 65 in Weight: 155 lb BSA: 1.8 m2 MMode/2D Measurements & Calculations IVSd: 0.78 cm Ao root diam: 3.7 cm LVIDd: 5.1 cm LA dimension: 3.7 cm LVIDs: 2.9 cm ACS: 2.1 cm LVPWd: 0.92 cm IVSs: 1.2 cm LVPWs: 1.4 cm EDV(Teich): 123.8 ml ESV(Teich): 33.2 ml Doppler Measurements & Calculations MV E max don: 85.4 cm/sec Ao V2 max: 123.5 cm/sec MV A max don: 91.8 cm/sec Ao max P.1 mmHg MV E/A: 0.93 Ao V2 mean: 81.9 cm/sec Ao mean P.2 mmHg Ao V2 VTI: 27.1 cm Med Peak E' Don: 7.6 cm/sec Med E/e': 11.3 Lat Peak E' Don: 11.0 cm/sec Lat E/e': 7.8 Procedure A complete two-dimensional transthoracic echocardiogram was performed (2D, M-mode, Doppler and color flow Doppler). Left Ventricle The left ventricular size, thickness and function are normal. Ejection Fraction = 65%. E/A reversal c onsistent with but not diagnostic of poor LV compliance. The left ventricular wall motion is normal. Right Ventricle The right ventricle is normal in size and function. Atria Normal left and right atrial size and function. Mitral Valve The mitral valve is normal in structure and function. Tricuspid Valve The tricuspid valve is normal in structure and function. No tricuspid regurgitation. There was insuff icient TR detected to calculate RV systolic pressure. Aortic Valve The aortic valve is normal in structure and function. Pulmonic Valve The pulmonic valve is normal in structure and function. Great Vessels The aortic root is normal size. Pericardium/Pleura There is no pericardial effusion. There is no pleural effusion. Interpretation Summary This was essentially a normal study. The left ventricular size, thickness and function are normal Ejection Fraction = 65%. MD Catarino Craig 07/22/2018 03:09 PM
[2018-07-22 18:26] VITALS: BP 133/83; PULSE 85; TEMP 97.9
== END 2018-07-22 18:50 | disposition home or self-care (01) | DRG 241 ==
LOC: JER 21:18 → UNDOADMOB 07-20 00:18 → JERBED 07-20 00:18 → J4W 07-20 15:42 → JERBED 07-20 15:42 → INTOOBSV 07-20 16:03 → OBSVTOIN 07-20 16:03 → JERBED 07-21 16:03 → J4W 07-21 16:03 → OBSVTOIN 07-21 16:03
PROVIDERS: ADMIT Internal Medicine; ATTEND Internal Medicine
PROC: 0DB98ZX Excision of Duodenum, Via Natural or Artificial Opening Endoscopic, Diagnostic (ICD-10-PCS; principal; 2018-07-21 13:00)
DX: K26.4 Chronic or unspecified duodenal ulcer with hemorrhage (principal); E83.51 Hypocalcemia; I24.8 Other forms of acute ischemic heart disease; I95.1 Orthostatic hypotension; F32.9 Major depressive disorder, single episode, unspecified; E87.6 Hypokalemia; D62 Acute posthemorrhagic anemia; E86.1 Hypovolemia
CPT/HCPCS: 36415; 36430; 70450-TC; 71045-TC-FY; 80048; 80053; 81003; 82272; 82550; 84484; 84703; 85025; 85027; 86850; 86900; 86901; 86922; 87086; 88305-TC; 88342-TC; 93005; 93010; 93306-TC; 99285-25; J0131; J1644; J7030; P9038; P9058

== ENCOUNTER 2018-11-18 10:09 | Emergency (ER) | payer OTHER ==
[2018-11-18 10:29] VITALS: BMI 23.3
[2018-11-18 11:31] LABS: BASO % 0.6 % (0-2.0); EOS % 1.7 % (0-4.5); HEMATOCRIT 31.6 % (32.4-45.2); HEMOGLOBIN 10.6 GM/dL (10.7-15.3); LYMPH % 20.4 % (8-40); MCHC 33.5 g/dl (32.0-36.0); MEAN CELL VOLUME 83.4 fl (80-96); MEAN PLT VOLUME 8.6 fl (7.5-11.1); MONO % 7.2 % (3.8-10.2); NEUT % 70.1 % (42.8-82.8); PLATELET COUNT 297 K/MM3 (134-434); RBC 3.78 M/mm3 (3.60-5.2); RDW 24.9 % (11.6-15.6); WHITE BLOOD COUNT 7.3 K/mm3 (4.0-10.0)
[2018-11-18 11:50] LABS: INR 0.97 (0.83-1.09); PROTHROMBIN TIME (PATIENT) 11.5 SEC (9.7-13.0)
[2018-11-18 12:03] LABS: ALBUMIN 3.5 g/dl (3.4-5.0); ALK PHOS 57 U/L (45-117); ANION GAP 9 MMOL/L (8-16); BILIRUBIN,TOTAL 0.2 mg/dL (0.2-1); BLOOD UREA NITROGEN 9 mg/dL (7-18); CALCIUM 9.3 mg/dL (8.5-10.1); CHLORIDE 106 mmol/L (98-107); CO2 23 mmol/L (21-32); CREATININE 0.4 mg/dL (0.55-1.3); GLUCOSE,RANDOM 81 mg/dL (74-106); POTASSIUM 3.9 mmol/L (3.5-5.1); SGOT/AST 13 U/L (15-37); SGPT/ALT 15 U/L (13-61); SODIUM 138 mmol/L (136-145); TOT PROT 7.3 g/dl (6.4-8.2)
[2018-11-18 12:19] LABS: HCG,QUALITATIVE URINE Positive
[2018-11-18 12:20] LABS: URINE APPEARANCE CLOUDY; URINE BILIRUBIN NEGATIVE (<2.0 mg/dL); URINE COLOR YELLOW; URINE GLUCOSE (UA) NEGATIVE (NEGATIVE); URINE KETONE NEGATIVE (NEGATIVE); URINE LEUK ESTERASE NEGATIVE (NEGATIVE); URINE NITRITE NEGATIVE (NEGATIVE); URINE PROTEIN NEGATIVE (NEGATIVE); URINE UROBILINOGEN NEGATIVE mg/dL (0.2-1.0)
--- NOTE | 2018-11-18 13:14 | PDOC ---
History of Present Illness - General Chief Complaint: Revisit, Lab Variance Stated Complaint: LOW BLOOD COUNT Time Seen by Provider: 11/18/18 10:58 - History of Present Illness Initial Comments: 11/18/18 14:59 The patient is a 45 year old female, with a significant past medical history of gastritis, anemia (taking iron BID), H.Pylori (July 2018 s/p treatment) who presents to the emergency department with concern for low hemoglobin of 5.[address] Lawrence's office last week with associated increasing weakness, fatigue, nausea, and shortness of breath. She also reports a decreased appetite. Pt reports SOB with exertion for 1 month, not at rest. SOB occurs when ascending stairs. States she had similar sxs in the past when she was anemic. Pt was advised to come to the ED 1 week ago when the hgb of 5 returned, but she could not come at the time. Pt reports LMP was about 6 weeks ago and she took a preg test 2 days ago that was neg. Denies vaginal bleeding or abd pain. The patient denies chest pain, headache and dizziness. The patient denies fever , chills, nausea, vomit, diarrhea and constipation. The patient denies dysuria, frequency, urgency and hematuria. Allergies: NKDA Social history: denies toxic habits PCP - Dr. pollo Lawrence 0 Past History - Past Medical History Allergies/Adverse Reactions: Allergies Allergy/AdvReac Type Severity Reaction Status Date / Time No Known Allergies Allergy Verified 11/18/18 10:18 Home Medications: Ambulatory Orders Ferrous Sulfate [Feosol] 325 mg PO ASDIR 11/18/18 Anemia: Yes COPD: No GI Disorders: Yes (gastritis, bleeding ulcer) - Immunization History Immunization Up to Date: Yes - Suicide/Smoking/Psychosocial Hx Smoking History: Never smoked Drug/Substance Use Hx: No Substance Use Type: None Review of Systems - Review of Systems Comments:: 11/18/18 15:03 "GENERAL/CONSTITUTIONAL: (+) generalized weakness. fatigue. decreased appetite. No fever or chills. HEAD, EYES, EARS, NOSE AND THROAT: No change in vision. No ear pain or discharge. No sore throat. GASTROINTESTINAL: (+) nausea, No vomiting, diarrhea or constipation. GENITOURINARY: No dysuria, frequency, or change in urination. CARDIOVASCULAR: (+) shortness of breath. No chest pain RESPIRATORY: No cough, wheezing, or hemoptysis. MUSCULOSKELETAL: No joint or muscle swelling or pain. No neck or back pain. SKIN: No rash NEUROLOGIC: No headache, vertigo, loss of consciousness, or change in strength/ sensation. ENDOCRINE: No increased thirst. No abnormal weight change. HEMATOLOGIC/LYMPHATIC: No anemia, easy bleeding, or history of blood clots. ALLERGIC/IMMUNOLOGIC: No hives or skin allergy." *Physical Exam - Vital Signs Last Vital Signs Temp Pulse Resp BP Pulse Ox 98.4 F 73 16 117/77 99 11/18/18 10:21 11/18/18 10:21 11/18/18 10:21 11/18/18 10:21 11/18/18 10:21 - Physical Exam Comments: 11/18/18 15:04 GENERAL: Awake, alert, and fully oriented, in no acute distress HEAD: No signs of trauma EYES: PERRLA, EOMI, sclera anicteric, conjunctiva clear ENT: Auricles normal inspection, hearing grossly normal, nares patent, oropharynx clear without exudates. Moist mucosa NECK: Normal ROM, supple, no lymphadenopathy, JVD, or masses LUNGS: Breath sounds equal, clear to auscultation bilaterally. No wheezes, and no crackles HEART: Regular rate and rhythm, normal S1 and S2, no murmurs, rubs or gallops ABDOMEN: Soft, nontender, normoactive bowel sounds. No guarding, no rebound. No masses EXTREMITIES: Normal range of motion, no edema. No clubbing or cyanosis. No cords , erythema, or tenderness BACK: No midline spinal tenderness in cervical/thoracic/lumbar region NEUROLOGICAL: Normal speech, cranial nerves intact, negative pronator drift, 5/ 5 strength in all 4 extremities, normal sensation to light touch in all 4 extremities, normal cerebellar exam, normal gait, normal reflexes and tone SKIN: Warm, Dry, normal turgor, no rashes or lesions noted. Moderate Sedation - Procedure Monitoring Vital Signs: Procedure Monitoring Vital Signs Temperature 98.4 F 11/18/18 10:21 Pulse Rate 73 11/18/18 10:21 Respiratory Rate 16 11/18/18 10:21 Blood Pressure 117/77 11/18/18 10:21 O2 Sat by Pulse Oximetry (%) 99 11/18/18 10:21 Heart Score/ECG Review #1 11/20/18 00:33 EKG read and interpreted by me: NSR, rate 66. Normal axis. Incomplete RBBB. No JUAN. ED Treatment Course - LABORATORY CBC & Chemistry Diagram: 11/18/18 13:25 11/18/18 11:17 - ADDITIONAL ORDERS Additional order review: Laboratory Results 11/18/18 11/18/18 11/18/18 11:17 11:17 11:17 PT with INR 11.50 INR 0.97 Sodium 138 Potassium 3.9 Chloride 106 Carbon Dioxide 23 Anion Gap 9 BUN 9 Creatinine 0.4 L Creat Clearance w eGFR 176.78 Random Glucose 81 Calcium 9.3 Total Bilirubin 0.2 AST 13 L ALT 15 Alkaline Phosphatase 57 Total Protein 7.3 Albumin 3.5 Urine Color Urine Appearance Urine pH Ur Specific [place] Urine Protein Urine Glucose (UA) Urine Ketones Urine Blood Urine Nitrite Urine Bilirubin Urine Urobilinogen Ur Leukocyte Esterase Urine HCG, Qual Blood Type Cancelled Antibody Screen Cancelled 11/18/18 10:30 PT with INR INR Sodium Potassium Chloride Carbon Dioxide Anion Gap BUN Creatinine Creat Clearance w eGFR Random Glucose Calcium Total Bilirubin AST ALT Alkaline Phosphatase Total Protein Albumin Urine Color Yellow Urine Appearance Cloudy Urine pH 7.0 Ur Specific [place] 1.010 Urine Protein Negative Urine Glucose (UA) Negative Urine Ketones Negative Urine Blood Negative Urine Nitrite Negative Urine Bilirubin Negative Urine Urobilinogen Negative Ur Leukocyte Esterase Negative Urine HCG, Qual Positive Blood Type Antibody Screen 11/18/18 11:17 RBC 3.78 MCV 83.4 MCHC 33.5 RDW 24.9 H MPV 8.6 Neutrophils % 70.1 D Lymphocytes % 20.4 D Monocytes % 7.2 Eosinophils % 1.7 Basophils % 0.6 Medical Decision Making - Medical Decision Making 11/18/18 15:04 38yo F hx anemia, h.pylori s/p treatment presents to the ED low hgb to 5 on outpt labs 1 week ago. Pt also reports anorexia, SOB when climbing stairs, and delayed LMP. CBCx2 with hgb of 10, thus pt is not anemic UPT+ Pt not surprised she is as her period is usually regular Will confirm to HCG quant (HCG qual is not available at this time) With regards to SOB, pt is in no resp distress, appears comfortable. Currently denies SOB, even with exertion. EKG pending trop neg CXR clear on my read Pt has normal vitals, no CP, is well appearing, no calf pain, edema, ttp. Pt has also had sxs for 4 weeks. Low likelihood to be PE If EKG non ischemic, pt likely stable for DC home 11/18/18 16:06 EKG non ischemic Pt asymptomatic at this time Requests DC home Will f/u with OB and PMD within 1 week I discussed the physical exam findings, ancillary test results and final diagnoses with the patient. I answered all of the patient's questions. The patient was satisfied with the care received and felt comfortable with the discharge plan and treatment plan. The patient will call their primary care physician within 24 hours to arrange follow-up and will return to the Emergency Department with any new, persistent or worsening symptoms. *DC/Admit/Observation/Transfer Diagnosis at time of Disposition: , Anorexia, Shortness of breath - Discharge Dispostion Disposition: HOME Condition at time of disposition: Stable Decision to Admit order: No - Referrals - Patient Instructions Printed Discharge Instructions: DI for -- Discomforts and Remedies Additional Instructions: Follow up with your primary care doctor and [facility] doctor within 1-3 days Return to the emergency department if you have any new, worsening, or concerning symptoms - Post Discharge Activity - Attestations Physician Attestion: 11/18/18 16:12 I, Dr. Jeremy Olivo MD, attest that this document has been prepared under my direction and personally reviewed by me in its entirety. I further attest, that it accurately reflects all work, treatment, procedures and medical decision -making performed by me.
[2018-11-18 13:30] LABS: HEMATOCRIT 31.6 % (32.4-45.2); HEMOGLOBIN 10.6 GM/dL (10.7-15.3); MCH 27.8 pg (25.7-33.7); MCHC 33.5 g/dl (32.0-36.0); MEAN PLT VOLUME 8.3 fl (7.5-11.1); PLATELET COUNT 287 K/MM3 (134-434); RBC 3.81 M/mm3 (3.60-5.2); RDW 24.9 % (11.6-15.6); WHITE BLOOD COUNT 7.3 K/mm3 (4.0-10.0)
[2018-11-18 13:46] LABS: ANISOCYTOSIS 1+; MACROCYTOSIS 1+; OVALOCYTE 1+
[2018-11-18 15:57] VITALS: BP 121/79; PULSE 71; TEMP 98.9
--- NOTE | 2018-11-19 12:08 | EKG ---
Test Reason : Blood Pressure : / mmHG Vent. Rate : 066 BPM Atrial Rate : 066 BPM P-R Int : 128 ms QRS Dur : 092 ms QT Int : 414 ms P-R-T Axes : -05 026 015 degrees QTc Int : 434 ms NORMAL SINUS RHYTHM INCOMPLETE RIGHT BUNDLE BRANCH BLOCK BORDERLINE ECG WHEN COMPARED WITH ECG OF 19-JUL-2018 22:30, T WAVE INVERSION NO LONGER EVIDENT IN ANTERIOR LEADS Confirmed by RADHA VARGAS, GAETANO ([id number]) on 11/19/2018 12:07:52 PM Referred By: Confirmed By:GAETANO GARCIA MD
== END 2018-11-18 16:24 | disposition home or self-care (01) ==
LOC: JER 10:09
DX: O26.899 Other specified pregnancy related conditions, unspecified trimester (principal); R63.0 Anorexia; Z68.23 Body mass index [BMI] 23.0-23.9, adult; Z3A.00 Weeks of gestation of pregnancy not specified
CPT/HCPCS: 36415; 71045-TC-FY; 80053; 81003; 84484; 84702; 84703; 85025; 85027; 85610; 87086; 93005; 93010; 99284-25